=== PATIENT | female | born 1945 | race Caucasian/White ===

== ENCOUNTER 2016-09-17 13:52 | Inpatient (IN) | payer MEDICARE, BC ==
[2016-09-14 11:14] VITALS: BMI 24.6
[2016-09-17] VITALS (18 sets, daily range): BP systolic 107–162; BP diastolic 57–91; PULSE 64–98; RESP 12–22; Ht 162.6 cm; Wt 69.0 kg
[~2016-09-17] VITALS: Ht 162.6 cm; Wt 69.0 kg
[~2016-09-17 13:52] MED LIST: AMLO-145 PO; ASC500 PO; GINS100C PO; HYDR-906 PO; MULT-236 PO; [UNRECOGNIZED DRUG - CODE] PO
[2016-09-17] MEDS ORDERED: LIDOCAINE 1% (STERILE-PAK) 30 ML INJ ONE (15:54)
[2016-09-17] MEDS ORDERED: LIDOCAINE 2% (SDV) 5 ML INJ ONE (16:04)
[2016-09-17] MEDS ORDERED: PROPOFOL 20 ML ONE (16:04)
[2016-09-17] MEDS ORDERED: MIDAZOLAM 1 MG/ML 2 ML INJ IV PRN (16:30)
[2016-09-17] MEDS ORDERED: METOCLOPRAMIDE 10 MG INJ IV PRN (16:30)
[2016-09-17] MEDS ORDERED: ONDANSETRON 4 MG INJ IV PRN ×2 (16:30→19:00)
[2016-09-17] MEDS ORDERED: DIPHENHYDRAMINE 50 MG INJ IV PRN ×2 (16:30→19:00)
[2016-09-17] MEDS ORDERED: FENTAnyl 50 MCG/ML VIAL IV PRN (16:30)
[2016-09-17] MEDS ORDERED: MEPERIDINE 25 MG INJ IV PRN (16:30)
[2016-09-17] MEDS ORDERED: HYDROmorphONE (0.2 MG/ML) 10ML SYG IV PRN (16:30)
[2016-09-17] MEDS ORDERED: ONDANSETRON 4 MG INJ ONE (17:18)
[2016-09-17] MEDS ORDERED: CEFAZOLIN 1 GM INJ ONE (17:18)
[2016-09-17] MEDS ORDERED: METOCLOPRAMIDE 10 MG INJ ONE (17:18)
[2016-09-17] MEDS: FENTAnyl 50 MCG/ML VIAL IV PRN ×3 (17:26→17:46)
[2016-09-17] MEDS: HYDROmorphONE (0.2 MG/ML) 10ML SYG IV PRN ×3 (17:30→17:46)
[2016-09-17] MEDS ORDERED: HYDROCODONE/APAP (5/325) TAB PO PRN (19:00)
[2016-09-17] MEDS ORDERED: IBUPROFEN 600 MG TAB PO PRN (19:00)
[2016-09-17] MEDS ORDERED: ACETAMINOPHEN 325 MG TAB PO PRN (19:00)
[2016-09-17] MEDS ORDERED: morphine 2 MG INJ IV PRN (19:00)
--- NOTE | 2016-09-17 20:04 | OPR ---
DATE OF OPERATION: 09/17/2016 SURGEON: Bella Mckoy DPM [employer] OPERATOR: None. PREOPERATIVE DIAGNOSES: 1. Left chronic left ankle ulceration. 2. History of skin grafting with a partial take. 3. 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 4. Hypertension. POSTOPERATIVE DIAGNOSES: 1. Left chronic left ankle ulceration. 2. History of skin grafting with a partial take. 3. 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 4. Hypertension. PROCEDURE PERFORMED: Left ankle excisional debridement of skin, subcutaneous tissue, ligament, and tendon 5 x 6 cm. PATHOLOGY: Wound tissue left ankle and wound culture. ANESTHESIA: 20 mL of lidocaine 1% plain and general anesthesia. ESTIMATED BLOOD LOSS: 30 to 40 mL. COMPLICATIONS: None. INDICATION FOR PROCEDURE: Chronic left ankle ulceration had improved granulation and skin grafting with recurrent infection. The patient has a history of superficial invasive squamous cell carcinoma with clear margins. The patient has residual ulcerations with signs of cellulitis. The patient ad mitted for operative intervention. Informed consent was obtained. Discussed planned procedure preo peratively. The site was marked. DESCRIPTION OF PROCEDURE: The patient brought into the operating room and placed in the supine posi tion. Formal timeout was performed. The foot was properly marked, confirmed by the surgical team, and prepped and draped in the usual sterile fashion. At this time, using a 15 blade, the skin, soft tissue was then incised circumferentially around the ulceration and full thickness tissue excised. The 12 o'clock margin was marked with nylon and the 3 o'clock with Prolene. Hemostasis was obtaine d of all bleeding. The patient had estimated blood loss of 20 to 30 mL. At this time, using a rocco eur, soft tissue obtained and this was sent for culture. The wound was further debrided with the Valery rene using saline irrigation. The patient's wound measured 5 x 6 cm. The wound was then cleansed with antiseptic solution and hydrogen peroxide. The wound was covered with Xeroform, followed by t he wound VAC foam. It was fully functioning at 125 mmHg continuous setting. The patient tolerated the procedure well. POSTOPERATIVE PLAN: The patient will be admitted. Continued negative pressure wound therapy. Cont inue antibiotics, pain management. Dr. Burnett consulted for medical management. Will need [facility] assistance for either home health or placement. Also will be needing continued use of the wo und VAC. Dictated By: BELLA ZAMORA/FILOMENA Conf#: [id number] DID#: [id number]
--- NOTE | 2016-09-17 20:22 | CONS ---
DATE OF ADMISSION: 09/17/2016 DATE OF CONSULTATION: 09/17/2016 CHIEF COMPLAINT: Left ankle ulceration. HISTORY OF PRESENT ILLNESS: This is a 71-year-old female with chronic ulceration who had skin graft ing with a partial take with residual infection. She has had a difficult to heal ulceration followi ng radiation therapy. Last pathology report revealed a superficial noninvasive squamous cell carcin obey with clear margins. The patient here for operative intervention. The patient has been seen by her primary, Dr. Rizzo, and cleared for operative intervention. PAST MEDICAL HISTORY: Hypertension. MEDICATIONS: Norvasc 5 mg. SOCIAL HISTORY: Denies any tobacco or alcohol use. FAMILY HISTORY: Noncontributory. ALLERGIES: SULFA AND MENTHOL. PHYSICAL EXAMINATION: VITAL SIGNS: Blood pressure is 162/91, temperature 97.5, pulse is 98, respiratory rate 18, O2 sat i s 98 on room air. GENERAL: The patient alert, oriented, no acute distress. EYES: Extraocular motion intact. HEAD: Normocephalic, atraumatic. NECK: Trachea is midline. PULMONARY: Regular respiration. EXTREMITIES: Left anterior ankle ulceration with granular tissue. Portion is covered with a skin g raft. Tendon exposure to anterior medial ankle with no malodor, no cellulitis. The patient has a 2 + DP, PT, popliteal pulse. ASSESSMENT: 1. Left anterior ankle chronic ulceration. 2. Cellulitis. PLAN: Surgery scheduled. Anticipate using negative pressure wound therapy. The patient will be ad mitted for continued antibiotics. Follow up on culture results. Dr. Burnett consulted for postoperat heber medical management. All questions were answered to her satisfaction. Preoperatively, the foot was marked. Dictated By: BELLA ZAMORA/FILOMENA Conf#: [id number] DID#: [id number]
[2016-09-17] MEDS: CEFAZOLIN 1 GM/50 ML (PMX) 50 ML IVPB SCH (22:21)
--- NOTE | 2016-09-17 23:17 | HP ---
DATE OF ADMISSION: 09/17/2016 REASON FOR ADMISSION: Status post left foot ulcer debridement and wound VAC placement. HISTORY OF PRESENT ILLNESS: The patient is a 71-year-old female well known to me from pre vious hospitalization back in 01/2016. The patient has history of hypertension, basal cell carcinom a of the left distal tibia, status post extensive radiation. Unfortunately, she developed a wound o n 01/31/2016 when she was admitted. She had an infected left ulcerated wound. Organism was E. coli , Morganella morganii, and enterococcus species. The patient was treated initially with vancomycin and Zosyn. She underwent drainage of abscess and debridement of ulcerated skin. At that time, biop sy showed a small focal area of superficially invasive squamous cell carcinoma, moderately different iated. All resection margins are free of carcinoma. Gangrenous necrosis, granulation tissue inform ation, acute and chronic inflammation. The patient followed Dr. Mckoy as an outpatient basis and was noted still a wound. Initially it healed, but then she stated that tendon at the area caused so me skin disruption and delay in healing. It was decided to take her to the OR again today and the p atient underwent debridement and wound VAC placement. The patient tolerated the procedure well and now transferred to the medical/surgical floor for further medical management. PAST MEDICAL HISTORY: Includes basal cell carcinoma of the left lower extremity. Also, recently sq uamous cell carcinoma of that area with clear margin debridement recently, chronic wound of the left lower extremity, hypertension, nicotine dependency. ALLERGIES: SULFA AND MENTHOL. MEDICATIONS: 1. Amlodipine 5 mg daily. 2. Alprazolam 0.25 b.i.d. p.r.n. 3. Taft 5/325 q.6h. p.r.n. 4. Vitamin C 4000 daily. 5. Multivitamin 1 tablet daily. SURGICAL HISTORY: Right wrist surgery status post injury, also right foot spur surgery in the ankle in 201, and now also multiple surgeries to the left distal tibia and ankle area. SOCIAL HISTORY: The patient is with no kids. 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 T he patient smokes up 1 pack a day in the past. Now she has stopped for more than 6 months ago. Alc ohol socially. IV drug abuse denies. FAMILY HISTORY: Noncontributory. REVIEW OF SYSTEMS: Per HPI. The patient denies any headaches, blurry vision, chest pain, shortness of breath, weakness, or numbness. The patient is admitted for further care. PHYSICAL EXAMINATION: VITAL SIGNS: Temperature 97.8, pulse 75, respirations 18, blood pressure 141/73, saturation 94% on 2 liters. GENERAL: The patient is in no acute distress. HEENT: Normocephalic, atraumatic. CARDIOVASCULAR: Positive S1 and S2, regular rate. LUNGS: Clear. ABDOMEN: Soft, nontender. EXTREMITIES: Left distal tibia, there is the wound VAC placed at the surgical site. There is some chronic erythema surrounding it. The patient said this is chronic in nature. LABORATORY DATA: No new labs today. Labs back on 02/03/2016 were reviewed. IMAGING TESTS: No new tests. Ankle x-ray on 01/31/2016 at that time shows anterior soft tissue ulc eration or laceration proximal to the mortise joint, diffuse soft tissue swelling, no evidence of ac wade fracture. Chest x-ray at that time showed no acute cardiopulmonary disease. EKG on 09/10/2016 showed normal EKG. Also she underwent labs at outside clinic. This was done on 09/10/[address] Aliza arzate. White count was 7.2, hemoglobin 12.6, hematocrit 38, platelet count 256, neutrophils 66%, ly mphocytes 27%. ESR is elevated at 31. INR is normal at 0.8. Sodium is 136, potassium 4.0, chlorid e 98, bicarbonate 26, BUN 16, creatinine 0.8, glucose 126. Alkaline phosphatase was slightly high a t 146. Hemoglobin A1c is 5.4. CRP was high at 18. Vitamin D 25. Vitamin B12 of 670. TSH 0.88. AST 37, ALT 42. ASSESSMENT AND PLAN: This is a 71-year-old female with history of hypertension, basal oscar l carcinoma and skin cancer in the left ankle, now status post debridement of ulceration, now with w ound VAC. 1. Left ankle wound status post debridement and wound VAC placement. Follow up pathology and cultu res. The patient received cefazolin in the perioperative setting. Further recommendations per Dr. Mckoy. Pain control will be provided. 2. Hypertension. The patient is on Norvasc 5 mg daily. 3. The patient is on Protonix for gastrointestinal prophylaxis. May consider starting her on Loven ox as well for deep vein thrombosis prophylaxis, if okay with Dr. Mckoy. 4. Diet advanced per surgical team. 5. Will monitor patient closely with you during her hospitalization. Dictated By: JENNY JOHNSON/FILOMENA Conf#: [id number] DID#: [id number] CC: BELLA MCKOY DPM;*EndCC*
[2016-09-18] MEDS: PANTOPRAZOLE (EC) 40 MG TAB PO SCH (05:52)
[2016-09-18] MEDS: CEFAZOLIN 1 GM/50 ML (PMX) 50 ML IVPB SCH ×2 (05:52→14:12)
[2016-09-18 06:14] LABS: ALBUMIN 3.6 g/dl (3.3-4.9)
[2016-09-18 06:17] LABS: ALBUMIN/GLOBULIN RATIO 1.12; BILIRUBIN,INDIRECT 0.2 mg/dl (0-1.1); BILIRUBIN,TOTAL 0.2 mg/dl (0.2-1.3); CREATININE 0.63 mg/dl (0.44-1.00); TOTAL PROTEIN 6.8 g/dl (6.1-8.1)
[2016-09-18 06:18] LABS: CALCIUM 8.6 mg/dl (8.4-10.2)
[2016-09-18 06:30] LABS: BASOPHILS % 0.3 % (0.0-2.0); EOSINOPHILS % 0.1 % (0.0-7.0); HEMATOCRIT 35.4 % (37.0-47.0); HEMOGLOBIN 12.1 g/dl (12.0-16.0); LYMPHOCYTES # 1.4 10^3/ul (0.8-2.9); LYMPHOCYTES % 12.7 % (15.0-51.0); MEAN CORPUSCULAR HEMOGLOBIN 31.8 pg (29.0-33.0); MEAN CORPUSCULAR HGB CONC 34.3 g/dl (32.0-37.0); MEAN CORPUSCULAR VOLUME 92.7 fl (82.0-101.0); MEAN PLATELET VOLUME 8.2 fl (7.4-10.4); MONOCYTE # 0.7 10^3/ul (0.3-0.9); MONOCYTES % 6.8 % (0.0-11.0); NEUTROPHIL # 8.5 10^3/ul (1.6-7.5); NEUTROPHILS % 80.1 % (39.0-77.0); PLATELET COUNT 276 10^3/UL (140-440); RED BLOOD COUNT 3.82 10^6/ul (4.20-5.40); RED CELL DISTRIBUTION WIDTH 13.5 % (11.5-14.5); UNCORRECTED WBC 10.6 10^3/ul (4.8-10.8); WHITE BLOOD COUNT 10.6 10^3/ul (4.8-10.8)
[2016-09-18 06:34] LABS: MAGNESIUM 1.9 mg/dl (1.7-2.5)
[2016-09-18 06:38] LABS: CONDITION 1
[2016-09-18 06:39] LABS: PHOSPHORUS 3.9 mg/dl (2.5-4.9)
[2016-09-18 08:06] VITALS: BP 116/71; RESP 16
[2016-09-18] MEDS: AMLODIPINE 5 MG TAB PO SCH (09:33)
[2016-09-18 09:34] VITALS: BP 125/73; PULSE 79
[2016-09-18] MEDS ORDERED: VANCOMYCIN IV PER PHARMACY XX SCH (13:30)
--- NOTE | 2016-09-18 14:05 | PN ---
DATE: 09/18/2016 SUBJECTIVE: The patient seen status post left ankle excisional debridement of skin, subcutaneous ti ssue, ligament and tendon for 5 x 6 cm. The patient now has a wound VAC in the left ankle area. Th e surrounding area remains erythematous and red. The patient stated it was not as red as before. T he patient has been on Ancef since admission. PHYSICAL EXAMINATION: VITAL SIGNS: Temperature 98.3, pulse 79, respirations 16, blood pressure 125/73, saturation 97%. GENERAL: The patient is in no acute distress. HEENT: Normocephalic, atraumatic. CARDIOVASCULAR: S1 and S2, regular rate. LUNGS: Clear. ABDOMEN: Soft, nontender. EXTREMITIES: Left wound VAC at the wound site appears to be in place. No discharge. Surrounding e rythema is noted. This is chronic but slightly worse per patient. MEDICATIONS: Include: 1. Norvasc 5 mg daily. 2. Protonix 40 mg daily. 3. Cefazolin 1 gram q.8h. 4. Tylenol p.r.n. 5. Motrin p.r.n. 6. [place] p.r.n. 7. Morphine sulfate p.r.n. 8. Zofran p.r.n. 9. Benadryl p.r.n. LABORATORY DATA: Wound culture is pending, but so far no growth after 1 day. Pathology report is p ending as well. Sodium is 138, potassium 4.0, chloride 104, bicarbonate 25, BUN is 12, creatinine 0 .63, glucose 104. Phosphorus 3.9, magnesium 1.9. AST 37, ALT 37, alkaline phosphatase 126, albumin 3.6. White count 10.6, hemoglobin 12.1, hematocrit 35, platelet count 276, neutrophils 80%, lympho cytes 13%. ASSESSMENT AND PLAN: This is a 71-year-old female with history of hypertension, basal oscar l carcinoma, squamous cell carcinoma of the left ankle, status post debridement in the past, now pre sented again with ongoing wound. Underwent debridement and wound VAC was placed. 1. Left ankle wound status post debridement and wound VAC placement. The patient with surrounding cellulitic area. We will add vancomycin and see. May discharge her on Bactrim. The patient will b e started on zinc sulfate, multivitamin and vitamin C. 2. Hypertension. Continue Norvasc. 3. Continue Protonix for gastrointestinal prophylaxis. 4. Add Lovenox for deep venous thrombosis prophylaxis. 5. Physical therapy as tolerated. 6. Disposition with wound VAC soon and with home health as well. In the meantime, we will follow u p cultures and pathology report. 7. The patient will be placed on Lactobacillus probiotics. 8. Monitor patient's p.o. intake. Make sure patient is comfortable. She does have p.r.n. pain med ications. We will follow. Dictated By: JENNY JOHNSON/FILOMENA Conf#: [id number] DID#: [id number]
[2016-09-18] MEDS: ZINC SULFATE 220 MG CAP PO SCH (14:12)
[2016-09-18] MEDS: ASCORBIC ACID 500 MG TAB PO SCH ×2 (14:12→20:12)
[2016-09-18] MEDS: MULTIVITAMINS THERAPEUTIC TAB PO SCH (14:14)
[2016-09-18] MEDS: ENOXAPARIN 40 MG/0.4 ML SYG SC SCH (14:16)
[2016-09-18] MEDS ORDERED: VANCOMYCIN 1.25 GM in SOD CHLORIDE 0.9% 250 ML IVPB SCH (15:00)
[2016-09-18] MEDS ORDERED: LEVOFLOXACIN 500MG/D5W (PMX) 100 ML IVPB SCH (18:30)
--- NOTE | 2016-09-18 18:54 | CONS ---
DATE OF ADMISSION: 09/17/2016 DATE OF CONSULTATION: 09/18/2016 SUBJECTIVE FINDINGS: The patient postoperative day 1 status post left ankle incision and drainage. The patient relates decreased pain, has some redness to the periwound. The patient denies any acut e complaints. She is requesting discharge home. PHYSICAL EXAMINATION: VITAL SIGNS: Temperature is 97.8, pulse is 92, respiratory rate 16, blood pressure 116/71, pulse ox imetry is 97. GENERAL: The patient alert, oriented. No acute distress. Regular respiration. EXTREMITIES: The patient has a wound VAC to the left anterior ankle functioning at 125 mmHg. Estim ated 20 to 30 mL of sanguineous exudate. The patient has normal capillary refill to toes. Left rosalind t chronic dislocation, hammertoe deformity. LABORATORIES: WBC 10.6, hemoglobin 12.1, hematocrit 35.4, platelets 276. ASSESSMENT: 1. Left ankle ulceration. 2. Cellulitis. 3. Hypertension. PLAN: The patient ambulatory. Appreciate physical therapy assistance. The patient wants to be dis charged home. Will need wound VAC paperwork completed. Estimated duration 2 to 3 months. The consuelo ent on vancomycin, will continue. Will add Levaquin to current medications. Dictated By: BELLA ZAMORA/FILOMENA Conf#: [id number] DID#: [id number]
[2016-09-18] MEDS: LACTOBACILLUS CHEW TAB PO SCH (20:12)
[2016-09-18 21:51] VITALS: BP 118/63; RESP 18
[2016-09-19] MEDS: VANCOMYCIN 750 MG in SOD CHLORIDE 0.9% 150 ML IVPB SCH ×2 (04:18→17:30)
[2016-09-19] MEDS: PANTOPRAZOLE (EC) 40 MG TAB PO SCH ×2 (06:35→09:03)
[2016-09-19 08:00] VITALS: BP 125/70; RESP 20
[2016-09-19] MEDS: ZINC SULFATE 220 MG CAP PO SCH (09:04)
[2016-09-19] MEDS: LACTOBACILLUS CHEW TAB PO SCH ×3 (09:04→21:13)
[2016-09-19] MEDS: MULTIVITAMINS THERAPEUTIC TAB PO SCH (09:04)
[2016-09-19] MEDS: ASCORBIC ACID 500 MG TAB PO SCH ×2 (09:04→21:00)
[2016-09-19] MEDS: AMLODIPINE 5 MG TAB PO SCH (09:05)
[2016-09-19] MEDS: ENOXAPARIN 40 MG/0.4 ML SYG SC SCH (09:07)
[2016-09-19] MEDS: FLUCONAZOLE 100 MG/NS (PMX) 50 ML IVPB SCH (14:13)
--- NOTE | 2016-09-19 14:20 | PN ---
DATE: 09/19/2016 SUBJECTIVE: The patient is slightly anxious about going home as she would like to go home. Noted c valeriano came back, the wound culture shows Staphylococcus species and yeast. The patient is current ly on vancomycin and Levaquin. The patient otherwise with no specific complaints, complaining of sl ight back pain and discomfort. Since she has the wound VAC in the left ankle. PHYSICAL EXAMINATION: Ankle: VITAL SIGNS: Temperature is 97.5, afebrile, pulse 74, respirations 20, blood pressure 125/70%, satu ration 96%. GENERAL: The patient is in no acute distress. HEENT: Normocephalic, atraumatic. The patient is pale. CARDIOVASCULAR: S1 and S2, regular rate. LUNGS: Clear. ABDOMEN: Soft, nontender. EXTREMITIES: Left ankle wound in a wound VAC, erythema is noted. No significant change. LABORATORY DATA: No new labs today. Labs from yesterday were reviewed. MEDICATIONS: Include: 1. Vancomycin dose per pharmacy. 2. Lactobacillus t.i.d. 3. Levaquin 500 IV daily. 4. Zinc sulfate 220 daily. 5. Multivitamin 1 tab daily. 6. Vitamin C 1000 b.i.d. 7. Vancomycin dose per pharmacy. 8. Lovenox 40 mg subq every day. 9. Norvasc 5 mg daily. 10. Protonix 40 mg daily. 11. Tylenol p.r.n. 12. Motrin p.r.n. 13. [place] p.r.n. 14. Morphine. 15. Zofran. 16. Benadryl p.r.n. ASSESSMENT AND PLAN: This is a 71-year-old female with history of hypertension, basal oscar l carcinoma, squamous cell carcinoma of the left ankle, status post debridement in the past, now pre sented with a repeat debridement. She is noted to have developing wound which may be infected. 1. Left ankle wound appears to be infected. Noted above organisms. We will continue with vancomyc in, added Diflucan. We will consult ID regarding recommendation for discharge planning. 2. Continue vitamins for maximum wound healing. 3. Hypertension, controlled with the above meds. 4. Continue Protonix for gastrointestinal prophylaxis and Lovenox for deep vein thrombosis prophyla xis. 5. Physical therapy as tolerated. 6. Pain control to be provided. 7. Continue probiotics with Lactobacillus. 8. Disposition when everything is arranged at home and when we in know the antibiotic type and duration. 9. Infectious Disease. I did add Diflucan to vancomycin as patient does have both yeast and staph s pecies. Will follow up final results. Dictated By: JENNY JOHNSON/FILOMENA Conf#: [id number] DID#: [id number]
--- NOTE | 2016-09-19 17:12 | CONS ---
DATE OF ADMISSION: 09/17/2016 DATE OF CONSULTATION: 09/19/2016 TYPE OF CONSULTATION: Infectious Disease. REASON FOR CONSULTATION: Antibiotic management. HISTORY OF PRESENT ILLNESS: Apolonia Blood is a 71-year-old female who is followed by Dr. Burnett and by Dr. Eduardo Mckoy. The patient has a number of problems includin. Hypertension. 2. Basal cell carcinoma of the left distal tibia, status post extensive radiation. 3. ALLERGY TO SULFA AND MENTHOL. Following the radiation, she developed a wound on 01/31/2016. Organisms grown were E. coli, Shakira lla morganii, enterococcus species initially susceptible to vancomycin and Zosyn. She underwent dra yeboah of the abscess and debridement of the ulcerated skin. A biopsy showed a small focal area of s uperficially invasive squamous cell carcinoma, moderately-differentiated. All resection margins wer e free of carcinoma. She had gangrenous necrosis, granulation tissue formation, acute and chronic i nflammation. Initially, the wound healed, but then she stated that the tendon at the area caused so me skin disruption and a delay in healing. She was taken to the OR again on 09/17/2016 and underwen t debridement and wound VAC placement. Other problems include status post right wrist surgery, stat us post injury. Also right foot spur surgery of the ankle in 2000. She has had multiple surgeries to the left distal tibia and ankle area. On admission, her white count was 7.2, H and H 12.6 and 38, platelet count 256,000 with 66 polys. S ed rate 31. BUN and creatinine 16/0.8, glucose 126. Alkaline phosphatase was 146. CRP was high at 18. PAST MEDICAL HISTORY: Operations as outlined. FAMILY HISTORY: Noncontributory. SOCIAL HISTORY: She is , has no children. She smoked a pack of cigarettes a day in the [facility] t, she stopped over the last 6 months. She drinks alcohol socially. Denies IV drug abuse. MEDICATIONS: Per chart. REVIEW OF SYSTEMS: As per HPI. PHYSICAL EXAMINATION: GENERAL: The patient is a well-developed, well-nourished female who is alert, responsive, in no acu te distress. VITAL SIGNS: Stable. She is afebrile. SKIN: Without generalized rash. HEENT: Within normal limits. NECK: Supple. LYMPH NODES: None palpable. CHEST: Decreased breath sounds at the bases. HEART: Without murmur or gallop. ABDOMEN: Soft, nontender, without organosplenomegaly or masses. EXTREMITIES: She has a wound VAC over an ulcerated area of her left distal tibia with some chronic erythema surrounding it. RECTAL AND GENITAL: Deferred. NEUROLOGIC: No focal neurological abnormalities. IMPRESSION AND PLAN: The patient is status post debridement of a left ankle wound. She is growing staphylococcus species and yeast. She was placed on fluconazole and vancomycin as well as Levaquin. We will await the culture reports and if the culture reports remain the same, I will discontinue t he vancomycin at this time. I will dictate my findings to Dr. Glen Burnett and Dr. Eduardo Mckoy. Dictated By: CHRIS RUTHERFORD MD, JD/FILOMENA Conf#: [id number] DID#: [id number]
--- NOTE | 2016-09-19 20:20 | CONS ---
DATE OF ADMISSION: 09/17/2016 DATE OF CONSULTATION: SUBJECTIVE FINDINGS: The patient is being followed for left anterior ankle ulceration status post incision and drainage and debridement seen by ID, initiated on fluconazole given presence of yeast. The patient recently received the wound VAC. The pain is controlled. REVIEW OF SYSTEMS: Denies any fever, nausea, vomiting. PHYSICAL EXAMINATION: VITAL SIGNS: Temperature 97.5, pulse 74, respiratory rate 20, blood pressure 125/70, pulse oximetry is 96%. GENERAL: The patient alert, oriented. EXTREMITIES: Has decreased erythema surrounding the left anterior ankle ulceration. Wound VAC present and fully functioning at 125 mmHg. Patient has estimated 10-20 mL sanguineous exudate. PATHOLOGY: Skin with extensive ulceration with a surface purulent exudate and diffuse fibrosis, focal granulation tissue reaction at the ulcer base, pseudoepitheliomatous hyperplasia of epidermis at ulcer edges. No evidence of malignancy. Cultures positive for yeast and Staphylococcus. LABORATORIES: WBC 10.6, hemoglobin 12.1, hematocrit 35.4, platelets 276. Sodium 138, potassium 4, chloride 104, BUN 12, creatinine 0.63. ASSESSMENT: 1. Left anterior ankle ulceration, status post debridement, with current infection with staph and yeast. 2. Cellulitis. 3. Hypertension. PLAN: The patient is stable for discharge. Appreciate case management, will need a wound VAC dressing change. The patient initiated on Levaquin, vancomycin and fluconazole. Definitive culture results pending. Appreciate the assistance. Dictated By: BELLA ZAMORA/FILOMENA Conf#: [id number] DID#: [id number] MTDD
[2016-09-19 21:11] VITALS: BP 149/78; RESP 16
[2016-09-20 03:44] LABS: CREATININE 0.69 mg/dl (0.44-1.00)
[2016-09-20] MEDS: VANCOMYCIN 1 GM in NS 250 ML IVPB SCH ×2 (04:31→16:35)
[2016-09-20 08:56] VITALS: BP 133/69; RESP 19
[2016-09-20] MEDS: ENOXAPARIN 40 MG/0.4 ML SYG SC SCH (09:00)
[2016-09-20] MEDS: PANTOPRAZOLE (EC) 40 MG TAB PO SCH (09:39)
[2016-09-20] MEDS: LACTOBACILLUS CHEW TAB PO SCH ×2 (09:39→13:30)
[2016-09-20] MEDS: AMLODIPINE 5 MG TAB PO SCH (09:40)
[2016-09-20] MEDS: ASCORBIC ACID 500 MG TAB PO SCH (09:40)
[2016-09-20] MEDS: MULTIVITAMINS THERAPEUTIC TAB PO SCH (09:40)
[2016-09-20] MEDS: ZINC SULFATE 220 MG CAP PO SCH (09:41)
--- NOTE | 2016-09-20 12:01 | PDOCDIS ---
Discharge Instructions CONDITION Patient Condition: Stable HOME CARE INSTRUCTIONS: Special Diet: no added salt ACTIVITY: Activity Restrictions: Slowly Increase Activity FOLLOW UP/APPOINTMENTS Appointments see prescriptions, reconciliation, follow up with PMD and Dr. Ernandez within 1- 2 weeks, dc with home health and wound vac, thanks. JENNY GIRALDO MD Sep 20, 2016 12:01
[2016-09-20] MEDS ORDERED: FLUC100T39 PO (12:04)
[2016-09-20] MEDS ORDERED: DOXY-17 PO (12:04)
[2016-09-20] MEDS ORDERED: IBUP-1542 PO (12:04)
--- NOTE | 2016-09-20 13:23 | DS ---
DATE OF ADMISSION: 09/17/2016 DATE OF DISCHARGE: 09/20/2016 REASON FOR ADMISSION: Elective debridement of left foot ankle ulcer with possible underlying infect ion. HOSPITAL COURSE: The patient is a 71-year-old female with history of hypertension, basal cell carcinoma, and squamous cell carcinoma at the left ankle area. Recently it was noted that the wound is getting worse, and Dr. Mckoy decided to perform a debridement. The patient underwent, on 07/17/2017, left ankle excisional debridement of skin, subcutaneous tissue, ligament, and tendon 5 x 6 cm. The patient tolerated the procedure well and a wound VAC was placed thereafter. Cultures c alan back as coagulase negative staph and yeast sensitive to doxycycline, rifampin, vancomycin, and B actrim. During her stay, the patient was on vancomycin, Levaquin, and Diflucan. THE PATIENT IS ALL ERGIC TO SULFA. The patient is doing better. Plan to discharge home with home health and a wound V AC and follow up with Dr. Mckoy. The patient was discharged for Trevett 5/325 q.6h. p.r.n. for airam re pain, especially when she changes her dressing, Doxycycline 100 mg b.i.d. for 14 days, Diflucan 1 00 mg daily for 14 days, ibuprofen 600 q.8h. p.r.n. for moderate pain, take with food. Also, she ta kes some vitamins, vitamin C, multivitamin, amlodipine 5 mg daily, and alprazolam p.r.n. for anxiety . FINAL DIAGNOSES: 1. Infected left ankle ulcer, status post debridement. 2. Amanda-wound cellulitis. 3. Hypertension. 4. Anxiety disorder. 5. History of skin cancer at the area of the wound. The pathology report showed no evidence of mal ignancy. DIET: 2 g sodium. ACTIVITY: As tolerated. The patient to follow up with Dr. Mckoy and the patient to be discharged with home health for woun d VAC management and monitor condition and physical therapy. Again, condition on discharge fair. T he patient will be discharged today. I appreciate Dr. Ramirez's and Dr. Mckoy's assistance. We wi ll follow. The patient instructed to follow up with her doctor and Dr. Mckoy within a week. Any change in condition to call 911 or go to the nearest emergency department. Dictated By: JENNY JOHNSON/FILOMENA Conf#: [id number] DID#: [id number]
--- NOTE | 2016-09-20 13:45 | PN ---
DATE: 09/20/2016 SUBJECTIVE: No acute changes overnight. The patient is alert, sitting comfortably in bed, wants to go home. No fevers overnight. MICROBIOLOGY: Left ankle wound culture growing coagulase-negative staph species susceptible to doxy cycline, Bactrim, vancomycin, rifampin, and yeast. ANTIMICROBIALS: The patient is on: 1. IV vancomycin. 2. Diflucan. PHYSICAL EXAMINATION: GENERAL: This is a fragile, elderly woman who is alert, in no distress. HEENT: Head atraumatic, normocephalic. Sclerae anicteric. Buccal mucosa pink. NECK: Supple, trachea midline. CHEST: Rise symmetrical. Breath sounds clear. HEART: S1, S2. ABDOMEN: Soft. Bowel sounds present. EXTREMITIES: Left lower extremity wound VAC. There is some erythema surrounding the wound. ASSESSMENT: 1. Left anterior ankle ulceration, status post incision and drainage with wound VAC application. 2. Basal cell carcinoma of the left distal tibia, status post extensive radiation. 3. ALLERGY TO SULFA. 4. Hypertension. PLAN: The patient remains stable. Cleared for discharge by podiatry. Okay to switch to oral doxyc ycline and oral fluconazole for 10 days to 2 weeks. Follow with podiatry for further recommendation s. Continue local wound care. Dictated By: KENNEDY SOFIA [employer] OPERATOR for [facility] Conf#: [id number] DID#: [id number]
[2016-09-20] MEDS: FLUCONAZOLE 100 MG/NS (PMX) 50 ML IVPB SCH (14:23)
== END 2016-09-20 19:50 | disposition home health service (06) | DRG 580 ==
LOC: SDS 13:52 → REC 17:29 → MS2 18:30
PROVIDERS: ADMIT Podiatrist Foot & Ankle Surgery; ATTEND Podiatrist Foot & Ankle Surgery
PROC: 0LBT0ZZ Excision of Left Ankle Tendon, Open Approach (ICD-10-PCS; principal; 2016-09-17 15:30)
DX: L97.329 Non-pressure chronic ulcer of left ankle with unspecified severity (principal); T86.822 Skin graft (allograft) (autograft) infection; B37.89 Other sites of candidiasis; L03.116 Cellulitis of left lower limb; I10 Essential (primary) hypertension; Z87.891 Personal history of nicotine dependence; B95.8 Unspecified staphylococcus as the cause of diseases classified elsewhere; Z92.3 Personal history of irradiation; Z85.828 Personal history of other malignant neoplasm of skin
CPT/HCPCS: 80053; 80202; 82565; 83735; 84100; 84520; 85025; 87070; 87075; 87102; 88304; 97162; J0690; J1170; J1450; J1650; J1956; J2175; J2270; J2405; J2765; J3010; J3370; J7050; L3260-LT

== ENCOUNTER 2017-08-26 19:17 | Inpatient (IN) | END 2017-08-30 16:40 | disposition home health service (06) | DRG 574 ==